=== PATIENT | male | born 1955 | race Caucasian/White ===

== ENCOUNTER 2021-08-24 11:50 | Inpatient (IN) | payer OTHER, MEDICARE ==
[~2021-08-24] VITALS: Ht 175.3 cm; Wt 95.7 kg
[2021-08-24 12:06] VITALS: BP 133/77
[2021-08-24 12:27] LABS: URINE BILIRUBIN NEGATIVE (Negative); URINE BLOOD TRACE (Negative); URINE CLARITY CLEAR; URINE COLOR YELLOW; URINE GLUCOSE-RANDOM* NEGATIVE (Negative); URINE KETONES NEGATIVE (Negative); URINE LEUKOCYTES-REFLEX NEGATIVE (Negative); URINE NITRITE-REFLEX NEGATIVE (Negative); URINE PROTEIN (DIPSTICK) NEGATIVE (Negative); URINE UROBILINOGEN 0.2 E.U./dl (0.2-1.0)
[2021-08-24 12:40] LABS: ABSOLUTE NEUTROPHILS 4.9 thou/uL (1.4-8.2); BASOPHILS 0.4 % (0.0-2.0); EOSINOPHILS 1.7 % (0.0-3.0); HEMATOCRIT 40.9 % (42.0-52.0); HEMOGLOBIN 13.6 gm/dL (14.0-18.0); LYMPHOCYTES 15.6 % (24.0-44.0); MCH 31.9 pg (26.0-34.0); MCHC 33.3 g/dL (28.0-37.0); MCV 95.8 fL (80.0-100.0); MONOCYTES 8.9 % (1.0-8.0); PLATELET COUNT 141 thou/uL (150-400); POLYS 73.4 % (36.0-66.0); RBC 4.27 mil/uL (4.50-6.00); RDW 13.2 % (10.5-14.5); WBC 6.6 thou/uL (4.0-11.0)
[2021-08-24 12:50] LABS: CALCIUM 8.8 mg/dL (8.5-10.1); CREATININE 16.9 mg/dL (0.7-1.3); POTASSIUM 4.8 mmol/L (3.5-5.1)
[2021-08-24 12:55] LABS: ALBUMIN 3.6 g/dL (3.4-5.0); TOTAL BILIRUBIN 0.9 mg/dL (0.2-1.0)
[2021-08-24 14:57] VITALS: BP 150/91
[2021-08-24] MEDS ORDERED: NORVASC5 MG PO (17:07)
[2021-08-25 05:56] LABS: HEMATOCRIT 41.7 % (42.0-52.0); HEMOGLOBIN 14.2 gm/dL (14.0-18.0); MCHC 34.1 g/dL (28.0-37.0); MCV 93.9 fL (80.0-100.0); RBC 4.44 mil/uL (4.50-6.00); RDW 13.1 % (10.5-14.5)
[2021-08-25 06:10] LABS: ALBUMIN 3.5 g/dL (3.4-5.0); CALCIUM 9.3 mg/dL (8.5-10.1); POTASSIUM 4.8 mmol/L (3.5-5.1); TOTAL BILIRUBIN 0.5 mg/dL (0.2-1.0); TOTAL PROTEIN 6.8 g/dL (6.4-8.2)
[2021-08-25 06:13] LABS: CREATININE 3.1 mg/dL (0.7-1.3)
[2021-08-25 09:47] VITALS: BP 149/89
[2021-08-25 15:12] VITALS: BP 140/84
[2021-08-25 15:32] LABS: CALCIUM 9.2 mg/dL (8.5-10.1); CREATININE 3.2 mg/dL (0.7-1.3); POTASSIUM 4.9 mmol/L (3.5-5.1)
--- NOTE | 2021-08-25 18:30 | NUR ---
PT ADMITED FROM ER. ADMISSION HX AND ASSESSMENT COMPLETED. VSS. DENIED HAVING PAIN OR DISCOMFORT. SR ON TELE. NO CONCERNS AT THIS TIME.
[2021-08-25 19:27] VITALS: BP 148/92
[2021-08-25 23:35] VITALS: BP 144/87
[2021-08-26 03:23] LABS: ALBUMIN 2.9 g/dL (3.4-5.0); CALCIUM 8.4 mg/dL (8.5-10.1); CREATININE 1.2 mg/dL (0.7-1.3); PHOSPHORUS 3.9 mg/dL (2.6-4.7); POTASSIUM 3.8 mmol/L (3.5-5.1)
--- NOTE | 2021-08-26 04:14 | NUR ---
assumed pt care at 1900, alert and orientedx4, very pleasant, denies pain or soa, sr on tele, abdomen some abdominal distention noted, some tenderness to touch, remains on bicab gtt as per emar, am labs noted, durbin with adequate u/o, plan for renal us today as per nephrology, progressing well towards poc, will continue to monitor
[2021-08-26 04:34] VITALS: BP 139/78
[2021-08-26 07:30] VITALS: BP 142/97
[2021-08-26] MEDS ORDERED: FLOMAX0.4 MG PO (09:57)
--- NOTE | 2021-08-26 13:01 | NUR ---
Pt A & O x4. Pt VS stable. Pt received medications as ordered. Pt received discharge orders to home. Discharge instructions reviewed with pt and pt verbalized understanding and signed paperwork. Pt awaiting ride home. Pt is SBA with cares and ADLS. Pt is NSR on the tele. Pt has fofley in place and will discharge with durbin.
--- NOTE | 2021-08-26 13:08 | NUR ---
Pt ride arrived. Pt wheeled to enterence in wheelchair by staff with personal belongings and discharge instructions and left hospital without incident in private vehicle.
== END 2021-08-26 13:58 | disposition home or self-care (01) | DRG 682 ==
LOC: ER 11:50 → 2N 16:11 → EROBS 16:11 → 2N 08-25 15:23
PROVIDERS: Internal Medicine Nephrology; Nurse Practitioner Family; Urology; ADMIT Hospitalist; ATTEND Hospitalist
DX: N17.9 Acute kidney failure, unspecified (principal); R65.11 Systemic inflammatory response syndrome (SIRS) of non-infectious origin with acute organ dysfunction; N13.8 Other obstructive and reflux uropathy; E87.1 Hypo-osmolality and hyponatremia; E87.2 Acidosis; N40.1 Benign prostatic hyperplasia with lower urinary tract symptoms; R33.8 Other retention of urine; E87.8 Other disorders of electrolyte and fluid balance, not elsewhere classified; I10 Essential (primary) hypertension; K59.00 Constipation, unspecified; N28.89 Other specified disorders of kidney and ureter; D69.6 Thrombocytopenia, unspecified; N32.89 Other specified disorders of bladder; Z20.822 Contact with and (suspected) exposure to COVID-19; Z83.438 Family history of other disorder of lipoprotein metabolism and other lipidemia; Z79.899 Other long term (current) drug therapy; Z88.0 Allergy status to penicillin
CPT/HCPCS: 10081

== ENCOUNTER 2021-09-09 21:43 | Emergency (ER) | payer OTHER, MEDICARE ==
[~2021-09-09] VITALS: Ht 175.3 cm; Wt 88.5 kg
[~2021-09-09 21:43] MED LIST: FLOMAX0.4 MG PO; NORVASC5 MG PO
[2021-09-09 23:06] VITALS: BP 131/92
== END 2021-09-09 23:15 | disposition home or self-care (01) ==
LOC: ER 21:43
DX: N40.0 Benign prostatic hyperplasia without lower urinary tract symptoms (principal); R33.9 Retention of urine, unspecified; I10 Essential (primary) hypertension; Z90.89 Acquired absence of other organs; Z79.899 Other long term (current) drug therapy; Z88.0 Allergy status to penicillin

== ENCOUNTER 2021-09-20 08:43 | Emergency (ER) | payer OTHER, MEDICARE ==
[~2021-09-20] VITALS: Ht 175.3 cm; Wt 88.5 kg
[2021-09-20 09:05] VITALS: BP 166/101
== END 2021-09-20 09:30 | disposition home or self-care (01) ==
LOC: ER 08:43
DX: R33.9 Retention of urine, unspecified (principal); I10 Essential (primary) hypertension; Z91.09 Other allergy status, other than to drugs and biological substances; Z79.899 Other long term (current) drug therapy; Z88.0 Allergy status to penicillin